=== PATIENT | female | born 1965 | race American Indian/Alaskan Native ===

== ENCOUNTER 2017-09-27 09:12 | Day surgery (SDC) | payer MEDICARE, OTHER ==
[2015-08-05 08:15] VITALS: BMI 41.6
[2017-09-27] MEDS ORDERED: Propofol 10 mg/ml Inj (20 ML) ONE (09:57)
[2017-09-27] MEDS ORDERED: Lidocaine Hydrochloride 0 ML INJ ONE (09:59)
[2017-09-27] MEDS ORDERED: MethylPREDNISolone Depo 40 mg/ml Inj ONE (10:00)
[2017-09-27] MEDS ORDERED: Iohexol 240 (50 ml) ONE (10:01)
[2017-09-27] MEDS ORDERED: Lidocaine 2% MPF (5 ml) Inj ONE (10:10)
[2017-09-27] MEDS ORDERED: methylPREDNISolone Depo 80 mg/ml Inj ONE (10:17)
[2017-09-27] MEDS ORDERED: Midazolam 2 MG/2 ML VIAL ONE (10:23)
[2017-09-27] MEDS ORDERED: Dextrose 5%/0.45% NS 500 ML IV ONE (11:10)
[2017-09-27 16:48] VITALS: TEMP 97.9
[2017-09-27 16:51] VITALS: BP 162/81; PULSE 68; RESP 20; O2SAT 99
--- NOTE | 2017-09-28 08:46 | OP ---
PROCEDURE DATE: 09/27/2017 PREOPERATIVE DIAGNOSES: 1. Cervical radiculopathy. 2. 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 3. Myalgias. POSTOPERATIVE DIAGNOSES: 1. Cervical radiculopathy. 2. 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 3. Myalgias. PROCEDURES: 1. Cervical epidural steroid injection, C6-C7. 2. Epidurogram. 3. Trigger point injections. X-RAY: [id number], fluoroscopy of the spine. ANESTHESIA: MAC/local. SURGEON: Judy Sanchez MD COMPLICATIONS: None. BLOOD LOSS: 2 mL. BRIEF HISTORY AND INDICATIONS: The patient has cervical radiculopathy and upper extremity pain and tingling radiating down from the posterior neck down to the arm and posterior shoulder side to all fingers. This patient presents today for a cervical epidural steroid injection under fluoroscopic guidance at the C6-C7 interlaminar space. PROCEDURE IN DETAIL: The patient, after giving informed consent for the procedure, was brought back to the procedure room, sitting in a wheelchair. Routine monitors were applied. The patient was leant forward with her neck flexed and forehead placed on a towel on the OR table. Neck was flexed at approximately 50 degrees lateral. Lateral fluoroscopic view was obtained at the C6-C7 levels. The patient was prepped and draped in a sterile fashion. A 27-gauge needle was used to inject lidocaine 1% subcutaneously over the skin overlying the interlaminar space of C6-C7. Subsequently, a 22-gauge Tuohy needle was used to advance into the C6-C7 interlaminar area using loss of resistance technique to enter the epidural space. The needle position was confirmed in lateral views. Contrast 180 Omnipaque was injected 0.5 mL showing good epidurogram. Subsequently, 80 mg of Depo-Medrol with 1 mL of normal saline was injected with intermittent negative aspiration. No heme or CSF was aspirated throughout. No paresthesias were elicited throughout. The patient tolerated the procedure well. Vital signs remained stable. The patient reported slight reduction in pain post procedure. Epidurogram: The patient underwent cervical epidural steroid injection today. The epidural was observed at the level of C6-C7 under AP and lateral fluoroscopic guidance. 2 mL of Omnipaque 200 contrast was injected that evenly spread from level C4 to C7 level with posterior-anterior dye spread bilaterally at level of C6-C7 and C5-C6. There appeared to be a moderate degree spondylosis at the level of C5-C6 and moderate degree of spondylosis at the level of C6-C7 with disc protrusion at the level of C6-C7. The intervertebral disc height at the level of C5-C6 was slightly less than normal and intervertebral disc height at the level of C7-T1 was well maintained. The neural foramen appeared to be patent. Conclusion: Good epidural dye containment from C6-C7 with intervertebral disc protrusion at the level of C5-C6, C6-C7, maintaining less than normal intervertebral disc height at level C5-C6. Spondylosis noted at the level of C4 through T1. Copies of the images are on file. Trigger Point Injections/Greater and Lesser Occipital Nerve Blocks: Tender to palpation on cervical areas and pain shooting up posterior head. Patient signed informed consent. Cervical area was prepped and drapped in sterile fashion. A 25-gauge needle was used to inject trigger point areas in trapezious muscles, paracervical muscles, and rhomboids bilaterally. The greater and lesser occipital nerves were also injected bilaterally by inserting needle 1 cm lateral and inferior to the posterior occipital protuberance. Total volume used was 10 mL of 0.25% Marcaine mixed with 40 mg Kenalog. Intermittent aspiration was done throughout with no heme or CSF aspirated throughout. Patient tolerated procedure well. DISPOSITION: Patient was taken to the recovery room in stable condition. Patient was given instructions to follow up in two weeks and was discharged in stable condition. No events or complications. Judy Sanchez MD
--- NOTE | 2017-09-28 17:46 | RAD ---
Date of service: 09/27/2017 PROCEDURE: Intraoperative Fluoroscopy. HISTORY: CERVICAL RADICULOPATHY FINDINGS: Fluoroscopic assistance was provided for cervical epidural steroid injection. Please refer to the operative report from DAVID Carrion. Total fluoroscopic time (continuous mode) utilized during the procedure 21.6 (seconds). Dose report: DLP 0.071 (mGy/ m2):
== END 2017-09-27 13:05 | disposition home or self-care (01) ==
LOC: C.SDS 09:12
PROVIDERS: ATTEND Anesthesiology Pain Medicine
DX: M47.22 Other spondylosis with radiculopathy, cervical region (principal); M50.223 Other cervical disc displacement at C6-C7 level
CPT/HCPCS: 20553; 62321; 72275; 82948; J1040; J2250; J3010; J7042; Q9966

== ENCOUNTER 2017-12-06 06:19 | Day surgery (SDC) | payer MEDICARE, OTHER ==
[2017-12-04 14:17] VITALS: BMI 42.5
[2017-12-06] MEDS ORDERED: Iohexol 240 (50 ml) ONE (06:24)
[2017-12-06] MEDS ORDERED: MethylPREDNISolone Depo 40 mg/ml Inj ONE (06:24)
[2017-12-06] MEDS ORDERED: Propofol 10 mg/ml Inj (20 ML) ONE (09:31)
[2017-12-06 10:01] VITALS: RESP 17; O2SAT 100
[2017-12-06 11:14] VITALS: BP 132/63; PULSE 73; TEMP 98.3
--- NOTE | 2017-12-06 15:40 | RAD ---
Date of service: 12/06/2017 PROCEDURE: Intraoperative Fluoroscopy. HISTORY: LUMBAR RADICULOPATHY FINDINGS: Fluoroscopic assistance was provided for lumbar injection. Please refer to the operative report from DAVID Carrion.
--- NOTE | 2017-12-06 21:51 | OP ---
PROCEDURE DATE: 12/06/2017 PREOPERATIVE DIAGNOSES: 1. Lumbar radiculopathy. 2. Lumbar herniated disc. 3. Myalgias. POSTOPERATIVE DIAGNOSES: 1. Lumbar radiculopathy. 2. Lumbar herniated disc. 3. Myalgias. PROCEDURE: 1. Bilateral L5-S1 lumbar selective nerve root block. 2. Epidurogram. 3. Trigger point injections. X-RAY: [id number], Fluoroscopy of the spine. ANESTHESIA: MAC/local. SURGEON: Judy Sanchez MD COMPLICATIONS: None. BLOOD LOSS: 2 mL. INDICATION: This patient has intractable back and leg pain that is unresponsive to conservative management. The pain is adversely affecting quality of life and activities of daily living. TECHNIQUE: After comprehensive informed consent was obtained, the risks of the procedure explained and questions answered. The patient understands fully the risks are, but not limited to possible bleeding, infection, headache, nervous tissue injury and worsening of their pain. The patient was placed prone on the operating table in a comfortable position. Confirmation of the procedure to be performed was obtained from the patient. The skin overlying the area to be injected was cleaned in a strict sterile fashion using chlorhexidine. Sterile drapes were placed around the area to be injected. Using the C-arm in the anteroposterior view, the levels to be injected were identified under fluoroscope. Then, the C-arm was obliqued in the coronal plane until the facet joint was delineated approximately 25 degrees. The area to be injected was superficially anesthetized with 3 mL of 1% lidocaine using a 27-gauge, 1.25-inch needle. Under fluoroscopic guidance, a 22-gauge, 3.5-inch short bevel needle was advanced and directed toward the tip of the pars. In the lateral view, ideal placement of the needle was obtained with the tip in the cephalodorsal corner of the neural foramen. In the anteroposterior plane and under continuous fluoroscopy, 1 mL of non-ionic, water-soluble contrast (Omnipaque 180) was injected to visualize the nerve root and make sure there was no vascular uptake. After negative aspiration for blood, 1 mL of preservative-free 0.5% Marcaine in 80 mg of Depo-Medrol was slowly injected at each level. The patient experienced no painful paresthesia during the injection. Epidurogram: The patient underwent transforaminal epidural steroid injection today. The epidural was observed at the level of L4-L5 under AP and lateral fluoroscopic guidance. A 2 mL of Omnipaque 200 contrast was injected that evenly spread from level L3 to S1 level with posterior-anterior dye spread bilaterally at level of L4-L5 and L5-S1. There appeared to be a moderate degree spondylosis at level of L4-L5 and moderate degree of spondylosis at the level of L5-S1 with disc protrusion at the level of L4-L5. The intervertebral disc height at the level of L4-L5 was slightly less than normal and intervertebral disc height at the level of L5-S1 was well maintained. The neural foramen appeared to be patent. Good epidural dye containment from L3-S1 with intervertebral disc protrusion at the level of L4-L5, maintaining less than normal intervertebral disc height at level L4-L5. Spondylosis noted at the level of L4 through S1. Copies of the images are on file. Trigger Point Injections: A 27-gauge needle was used to inject trigger point areas in paralumbar muscles, perithoracic muscles, and upper gluteal muscles. Needle was redirected to sciatic nerve branches. Total volume of 10 mL of 0.25% Marcaine. Intermittent aspiration was done throughout with no heme or CSF aspirated throughout. Patient tolerated procedure well. DISPOSITION: Patient was taken to the recovery room in stable condition. Patient was given instructions to follow up in two weeks and was discharged in stable condition. No events or complications. Judy Sanchez MD
== END 2017-12-06 10:53 | disposition home or self-care (01) ==
LOC: C.SDS 06:19
PROVIDERS: ATTEND Anesthesiology Pain Medicine
DX: M51.16 Intervertebral disc disorders with radiculopathy, lumbar region (principal); I10 Essential (primary) hypertension; E11.9 Type 2 diabetes mellitus without complications; J45.909 Unspecified asthma, uncomplicated
CPT/HCPCS: 20553; 62322; 64520; 82948; J1030; J2704